=== PATIENT | female | born 1970 | race Caucasian/White ===

== ENCOUNTER → 2018-03-10 15:34 | Day surgery (SDC) | payer OTHER ==
[~2018-03-10 15:34] MED LIST: Buffered Lidocaine 0.9% SYRIN* 5 ML/SYR SYRINGE INTRADERM ONE; Dexamethasone IV* 4 MG/ML 1 ML (4 MG) IV SLOW PU ONE; Dexamethasone IV* 4 MG/ML 1 ML (4 MG) ONE; Famotidine IV* 10 MG/ML 2 ML (20 mg) IV ONE; Famotidine IV* 10 MG/ML 2 ML (20 mg) ONE; HYDROcodone/ACETAMIN 5-325 MG* 1 TAB ONE; Ketorolac INJ* 30 MG/ML 1 ML VIAL IV PRN; Ketorolac INJ* 30 MG/ML 1 ML VIAL ONE; Naloxone* 0.4 MG/ML 1 ML VIAL IV PRN; ROPIVACAINE 5 MG/ML 30 ML BTL (0.5%) ONE; ceFAZolin 2 GM in NS PREMIX(*) 2 GM/100 ML BAG IVPB ONE; fentaNYL* 50 MCG/ML 2 ML VIAL (100 MCG VIAL) ONE
[2018-03-10 17:31] VITALS: BP 121/77
--- NOTE | 2018-03-11 15:11 | OP ---
DATE OF OPERATION: 03/10/18 - [facility] DATE OF : 72 SURGEON: Mina Doss MD BRAND INSPECTOR: SHAR Ramirez. An diploma medical assistant was needed for the procedure to aid in holding the reduction and needed for instrumentation portion. ANESTHESIOLOGIST: Dr. Castle. ANESTHESIA: General. PRE-OP DIAGNOSIS: Right displaced fifth metacarpal neck fracture. POST-OP DIAGNOSIS: Right displaced fifth metacarpal neck fracture. OPERATIVE PROCEDURE: Closed reduction and percutaneous fixation of the right fifth metacarpal neck fracture. INDICATIONS: Natalie has the aforementioned fracture. It is quite displaced and angulated. I talked to her about her options including closed reduction and casting versus pinning. She wanted to proceed with pinning. She understands the risk of a pin tract infection, nonunion, and persistent pain despite surgery. ESTIMATED BLOOD LOSS: 2 mL. COMPLICATIONS: None. FINDINGS: See above and below. DESCRIPTION OF PROCEDURE: Natalie was seen in the preoperative holding area. The correct site, side, and procedure were identified. We came back to the operating room where the arm was prepped and draped in the usual fashion. A time-out was performed. The arm was exsanguinated with the Esmarch and the tourniquet was inflated to 250 mmHg. I made a 2-mm incision over the proximal ulnar mid axial line of the palm proximal to the fifth metacarpal base. Mosquito was used to bluntly dissect down to the metacarpal base. A larger K-wire was used to open up a cortical window. I then placed a 2.0 mm K-wire with the tip bent up into the cortical window. I used a T-handle alyson to advance the K-wire to the fracture site having closed reduced the fracture and held the reduction while my diploma medical assistant advanced the wire across the fracture. This held the reduction very nicely. We tapped it up a few more times at the mallet to make sure it was nice and well seated in the subchondral bone of the metacarpal head. We checked the alignment on the mini C-arm fluoroscopy. Everything was looking good, so the T-handle alyson was removed. The wire was bent and clipped. A pin cap was placed. The pin was dressed with Xeroform, 4 x 4s, sterile Webril, and an ulnar gutter splint was applied grabbing the middle through small fingers. Tourniquet was deflated. She was taken to the recovery room in stable condition. [id number]/[facility] #: [id number] SINGH
--- NOTE | 2018-03-12 10:57 | RAD ---
CPT II Codes: G9500 INDICATION: Fracture left fifth metacarpal TECHNIQUE: Intraoperative fluoroscopy was provided during percutaneous pinning of the fractured left fifth metacarpal. FINDINGS: 3 spot film depicts percutaneous pinning of the left fifth metacarpal. Fluoroscopy time: 38 seconds IMPRESSION: As above.
== END | disposition home or self-care (01) ==
LOC: OREAST 15:34
PROVIDERS: ATTEND Orthopaedic Surgery Hand Surgery
DX: S62.336A Displaced fracture of neck of fifth metacarpal bone, right hand, initial encounter for closed fracture (principal); W22.8XXA Striking against or struck by other objects, initial encounter; Y92.149 Unspecified place in prison as the place of occurrence of the external cause; Z72.0 Tobacco use; I10 Essential (primary) hypertension; E78.5 Hyperlipidemia, unspecified; J45.909 Unspecified asthma, uncomplicated; K21.9 Gastro-esophageal reflux disease without esophagitis; F41.9 Anxiety disorder, unspecified
CPT/HCPCS: 76000; 81025; C1776; J0690; J1100; J1885; J2795; J3010

== ENCOUNTER 2018-04-22 11:28 | Emergency (ER) | payer OTHER ==
--- OUTSIDE RECORDS SUMMARY | 2018-04-22 11:44 | XMS REPORT ---
:1970 External Reference #:[id number] Author Organization [facility] Address [address] [place] [address] Phone [phone] Care Team Providers Name Role Phone Luis Alberto Hernandez MD Primary Care Physician Unavailable Payers Type Date Identification Numbers Payment Provider Subscriber Commercial Policy Number: [id number] [place] Natalie Stanford PayID: [id number] [address] [place] [address] Workers Onset: Policy Number: Jason Natalie Daniel Compensation 2011 [id number] Master Stanford PayID: GALLA [address] [place] [address] Medigap Part B [place] [facility] Natalie Stanford PayID: [id number] [place] [address] Problems Date Description Provider Status Onset: 03/02/2018 Closed fracture of neck of metacarpal Mina Doss MD Active bone Onset: 12/04/2013 Carpal tunnel syndrome RHONDA Mata Active Family History Date Family Member(s) Problem(s) Comments General heart disease General diabetes Social History Type Date Description Comments Lives With mother Occupation Not Currently Working ETOH Use Rarely consumes alcohol Smoking Heavy tobacco smoker (more than 10 cigarettes/day) Recreational Drug Use Former Drug User Daily Caffeine Consumes on average 4 cups of regular coffee per day Exercise Type/Frequency Does not exercise Allergies, Adverse Reactions, Alerts Date Description Reaction Status Severity Comments 09/18/2013 Sulfa Antibiotics active 09/18/2013 Tape Adhesive active 01/18/2018 Augmentin active Medications Medication Date Status Form Strength Qnty SIG Indications Ordering Provider Lisinopril-Hy Active Tablets 10-12.5mg 90tabs 1 by mouth Unknown drochlorothia 000 every day zide Omeprazole Active Capsules 20mg 90caps 1 by mouth Unknown 000 DR twice a day Flexeril Active as needed Unknown 000 Allergy Active 1 po q day Unknown Medication 000 Nasacort Active as Unknown Allergy 24HR 000 directed Advair Diskus Active as Unknown 000 directed Fluoxetine Active Capsules 20mg 1 by mouth Unknown HCL 000 every day Etodolac Active Tablets 400mg as needed Unknown 000 Ibuprofen Active Tablets 800mg by mouth Unknown 000 three times a day as needed Tramadol HCL Hx Tablets 50mg 30tabs 1-2 Mina 018 - tablets by MD Selam mouth 018 every 6 hours as needed pain Lisinopril Hx Unknown 000 - 018 Ibuprofen Hx Unknown 000 - 018 Oxycodone-Matt Hx Unknown taminophen 000 - 018 Neurontin Hx Unknown 000 - 018 Lipitor 0 Hx Unknown 000 - 018 Cymbalta Hx Unknown 000 - 018 Biaxin Hx Unknown 000 - 018 Vital Signs Date Vital Result Comment 04/22/2018 Height 64 inches 5'4" Weight 170.00 lb BP Systolic Sitting 116 mmHg BP Diastolic Sitting 68 mmHg Respiratory Rate 16 /min Pain Level 0 BMI (Body Mass Index) 29.2 kg/m2 03/23/2018 Heart Rate 68 /min BP Systolic 104 mmHg BP Diastolic 56 mmHg Respiratory Rate 16 /min Body Temperature 97.7 F Pain Level 3 03/02/2018 Height 64 inches 5'4" Pain Level 8 01/28/2018 Height 64 inches 5'4" Weight 170.00 lb BP Systolic Sitting 124 mmHg BP Diastolic Sitting 70 mmHg Respiratory Rate 17 /min Pain Level 5 BMI (Body Mass Index) 29.2 kg/m2 01/18/2018 Height 64 inches 5'4" Weight 170.00 lb BP Systolic Sitting 116 mmHg BP Diastolic Sitting 68 mmHg Respiratory Rate 16 /min Pain Level 7 BMI (Body Mass Index) 29.2 kg/m2 03/05/2014 Height 65 inches 5'5" Weight 205.00 lb Pain Level 0 BMI (Body Mass Index) 34.1 kg/m2 02/20/2014 Height 65 inches 5'5" Weight 205.00 lb Pain Level 0 BMI (Body Mass Index) 34.1 kg/m2 02/06/2014 Height 65 inches 5'5" Weight 205.00 lb Body Temperature 98.2 F BMI (Body Mass Index) 34.1 kg/m2 01/26/2014 Height 65 inches 5'5" Weight 205.00 lb Body Temperature 98.7 F BMI (Body Mass Index) 34.1 kg/m2 01/15/2014 Height 65 inches 5'5" Weight 205.00 lb Heart Rate 70 /min BP Systolic 135 mmHg BP Diastolic 70 mmHg BMI (Body Mass Index) 34.1 kg/m2 12/04/2013 Height 65 inches 5'5" Weight 205.00 lb Heart Rate 100 /min BP Systolic 126 mmHg BP Diastolic 86 mmHg BMI (Body Mass Index) 34.1 kg/m2 11/08/2013 Height 65 inches 5'5" Weight 205.00 lb Heart Rate 97 /min BP Systolic 144 mmHg BP Diastolic 80 mmHg BMI (Body Mass Index) 34.1 kg/m2 10/16/2013 Height 65 inches 5'5" Weight 205.00 lb Heart Rate 99 /min BP Systolic 119 mmHg BP Diastolic 81 mmHg BMI (Body Mass Index) 34.1 kg/m2 09/18/2013 Height 64 inches 5'4" Weight 200.00 lb Heart Rate 58 /min BP Systolic 131 mmHg BP Diastolic 75 mmHg BMI (Body Mass Index) 34.3 kg/m2 Results Description No Information Procedures Date CPT Code Description Status 03/23/2018 25916 Short Arm Cast Application Completed 03/10/2018 95232 FX Metacarpal Percutaneous Skeletal Fixation Completed 03/10/2018 93559 FX Metacarpal Percutaneous Skeletal Fixation Completed 01/25/2014 10851 Carpal Tunnel Release Completed 01/25/2014 99495 Carpal Tunnel Release Completed 01/25/2014 66813 Carpal Tunnel Release Completed 10/27/2013 21070 Carpal Tunnel Release Completed 10/27/2013 36389 Carpal Tunnel Release Completed 10/27/2013 89115 Carpal Tunnel Release Completed 10/27/2013 78053 Carpal Tunnel Release Completed Encounters Type Date Location Provider CPT E/M Dx Office Visit 03/02/2018 [place] [address] [id number] 11:00a Of [place] Office Visit 01/28/2018 [place] [address] [id number] 1:45p [facility] [place] Office Visit 01/18/2018 [place] [address] [id number] 10:00a Of [facility] [place] Office Visit 09/18/2013 [facility] [place] 38730 354.0 11:15a Of [place] Pabon M.D. Office Visit 07/15/2012 [facility] [place] 31192 354.0 11:00a Of [place] Pabon M.D. Plan of Care Future Appointment(s):05/27/2018 1:00 pm - Mina Doss MD [facility]/02/2018 - FREIDA [id number] Disp fx of nk of 5th bone, r hand, 7thDFollow up:Follow up: 4 weeks
--- OUTSIDE RECORDS SUMMARY | 2018-04-22 11:44 | XMS REPORT ---
:1970 External Reference #:[id number] Author Organization [facility] Address [address] [place] [address] Phone [phone] Care Team Providers Name Role Phone Luis Alberto Hernandez MD Primary Care Physician Unavailable Payers Type Date Identification Numbers Payment Provider Subscriber Commercial Policy Number: [id number] [place] Natalie Stanford PayID: [id number] [address] [place] [address] Workers Onset: Policy Number: Jason Natalie Daniel Compensation 2011 [id number] Master Stanford PayID: GALLA [address] [place] [address] Medigap Part B [place] [facility] Natalie Stanford PayID: [id number] [place] [address] Problems Date Description Provider Status Onset: 03/02/2018 [...] Form Strength Qnty SIG Indications Ordering Provider Tramadol HCL Active Tablets 50mg 30tabs 1-2 Mina 018 tablets by MD Selam mouth every 6 hours as needed pain Lisinopril-Hy Active Tablets 10-12.5mg 90tabs 1 by [...] 000 three times a day as needed Lisinopril Hx Unknown 000 - 018 Ibuprofen Hx Unknown 000 - 018 Oxycodone-Matt Hx Unknown taminophen 000 - 018 Neurontin Hx Unknown 000 - 018 Lipitor Hx Unknown 000 - 018 Cymbalta Hx Unknown 000 - 018 Biaxin Hx Unknown 000 - 018 Vital Signs Date Vital Result Comment 03/23/2018 Heart Rate 68 /min BP Systolic [...] Procedures Date CPT Code Description Status 03/23/2018 86029 Short Arm Cast Application Completed 03/10/2018 24410 FX Metacarpal Percutaneous Skeletal Fixation Completed 03/10/2018 78781 FX Metacarpal Percutaneous Skeletal Fixation Completed 01/25/2014 78074 Carpal Tunnel Release Completed 01/25/2014 33785 Carpal Tunnel Release Completed 01/25/2014 77420 Carpal Tunnel Release Completed 10/27/2013 55515 Carpal Tunnel Release Completed 10/27/2013 81929 Carpal Tunnel Release Completed 10/27/2013 19811 Carpal Tunnel Release Completed 10/27/2013 36082 Carpal Tunnel Release Completed Encounters Type Date Location Provider CPT E/M Dx Office Visit 03/02/2018 [place] [address] S62.336A 11:00a [facility] [place] Office Visit 01/28/2018 [place] [address] [id number] 1:45p Of [employer] [facility] [place] Office Visit 01/18/2018 [place] [address] S62.636A 10:00a Of [employer] [facility] [place] Office Visit 09/18/2013 [facility] [place] 68613 354.0 11:15a Of [place] Pabon M.D. Office Visit 07/15/2012 [facility] [place] 92028 354.0 11:00a Of [place] Pabon M.D. Plan of Care 03/23/2018 - FREIDA [id number] Disp fx of nk of 5th bone, r hand, 7thDFollow up:Follow up: 2 weeks
[2018-04-22 12:54] VITALS: BP 136/97
--- NOTE | 2018-04-22 13:38 | UC ---
Throat Pain/Nasal Venkat HPI - HPI Summary HPI Summary: 48 yo WF h/o chronic LBP, dorsal spine stimulator, 3 discectomies p/w frontal sinus pains and LBP. Has had a URI about 10 dyas ago but now sinus pain is worsening with funny metallic taste, cannot smell or taste food, denies f/c/n/v/ d. - History of Current Complaint Chief Complaint: UCGeneralIllness Stated Complaint: EAR AND BACK COMPLAINT Time Seen by Provider: 04/22/18 12:49 Hx Obtained From: Patient Hx Last Menstrual Period: 04/09/18 Onset/Duration: Gradual Onset, Lasting Weeks Severity: Severe Pain Intensity: 10 Cough: None Associated Signs & Symptoms: Positive: Negative - Allergies/Home Medications Allergies/Adverse Reactions: Allergies Allergy/AdvReac Type Severity Reaction Status Date / Time Adhesive Tape Allergy Intermediate Hives Verified 03/10/18 15:55 latex Allergy Intermediate HAND RASH Verified 03/10/18 15:55 Sulfa (Sulfonamide Allergy Intermediate Hives Verified 03/10/18 15:55 Antibiotics) amoxicillin [From Augmentin] Allergy Diarrhea Verified 03/10/18 15:55 clavulanic acid Allergy Diarrhea Verified 03/10/18 15:55 [From Augmentin] Home Medications: Home Medications Cyclobenzaprine TAB* [Flexeril 10 MG TAB*] 10 mg PO TID 04/22/18 [History Confirmed 04/22/18] PMH/Surg Hx/FS Hx/Imm Hx Previously Healthy: No - chronic LBP - Surgical History Surgical History: Yes Surgery Procedure, Year, and Place: 12/2000, DISCECTOMY L4, L5, S1, [facility]. 01/2010 , DISCECTOMY L4, L5, [facility]. 11/2010 DISCECTOMY L4,L5, WITH EXCISION OF SCAR TISSUE , [facility]. 02/2013 TRIAL PLACEMENT OF LUMBAR DORSAL COLUMN STIMULATOR, [facility]. 1994 TONSILLECTOMY, [facility]. BILATERAL EYE SURGERY A CHILD, [facility]. 08/2009 SINUS SURGERY, [facility]. 04/26/2013 TOOTH EXTRACTION, [facility]. 10/27/2013 left carpal tunnel surgery. right carpal tunnel 2013 - Social History Alcohol Use: None Substance Use Type: None Substance Use Comment - Amount & Last Used: over the weekend Smoking Status (MU): Current Every Day Smoker Type: Cigarettes Amount Used/How Often: 1- 1.5 PPD Length of Time of Smoking/Using Tobacco: 26 yrs Have You Smoked in the Last Year: Yes When Did the Patient Quit Smoking/Using Tobacco: none since 02/23/18 Household Exposure Type: Cigarettes Review of Systems Constitutional: Negative Skin: Negative Eyes: Negative ENT: Negative Respiratory: Negative Cardiovascular: Negative Gastrointestinal: Negative Genitourinary: Negative Motor: Negative Neurovascular: Negative Musculoskeletal: Other: - see HPI Neurological: Negative Psychological: Negative All Other Systems Reviewed And Are Negative: Yes Physical Exam - Summary Physical Exam Summary: Vital Signs Reviewed: Yes Appearance: Positive: Well-Appearing Skin: Positive: Warm Head/Face: Positive: Normal Head/Face Inspection Eyes: Positive: Normal, EOMI, STEFAN ENT: Positive: Normal ENT inspection, EXTREMLY DRY MM, FRONTAL SINUS TENDERNESS , severe Neck: Positive: Supple Respiratory/Lung Sounds: Positive: Clear to Auscultation Cardiovascular: Positive: Normal, RRR, S1, S2 Abdomen Description: Positive: Nontender, Soft Musculoskeletal: Positive: LBP-CHRONIC paraspinal tenderness in lumbar spine Neurological: Positive: CN Intact II-XII Psychiatric: Positive: Normal Triage Information Reviewed: Yes Vital Signs: Initial Vital Signs Temp 36.7 C 04/22/18 12:43 Pulse 85 04/22/18 12:43 Resp 19 04/22/18 12:43 BP 136/97 04/22/18 12:43 Pulse Ox 100 04/22/18 12:43 Throat Pain/Nasal Course/Dx - Course Course Of Treatment: Toradol 60mg IM x1 for LBP flare, UA neg. Clarithromycin 500 BID x 7 days for sinus infection - Differential Dx/Diagnosis Provider Diagnoses: Sinus infection. Chronic LBP- pt wanted script for oxycodone but advised to follow up with pain clinic, one dose of percocet in UC given Discharge - Sign-Out/Discharge Documenting (check all that apply): Patient Departure All imaging exams completed and their final reports reviewed: No - Discharge Plan Condition: Stable Disposition: HOME Prescriptions: Clarithromycin TAB* [Biaxin 500 MG TAB*] 500 mg PO BID 7 Days #14 tab Referrals: No Primary Care Phys,NOPCP [Primary Care Provider] - - Billing Disposition and Condition Condition: STABLE Disposition: Home
[2018-04-22] MEDS ORDERED: Ketorolac INJ* 60 MG/2 ML VIAL IM ONE (13:41)
[2018-04-22] MEDS ORDERED: oxyCODONE/Acetamin 5/325 MG* TAB PO ONE (13:46)
[2018-04-22] MEDS ORDERED: HYDROcodone/ACETAMIN 5-325 MG* 1 TAB PO ONE (13:50)
--- NOTE | 2018-04-26 08:07 | UC ---
- Progress Note Progress Note: Discharge - Sign-Out/Discharge Documenting (check all that apply): Post-Discharge Follow Up All imaging exams completed and their final reports reviewed: No Studies - Discharge Plan Condition: Stable Disposition: HOME Prescriptions: Clarithromycin TAB* [Biaxin 500 MG TAB*] 500 mg PO BID 7 Days #14 tab Fluconazole 150 MG (NF) [Diflucan 150 mg (NF)] 150 mg PO ONCE #1 tab Patient Education Materials: Sinusitis (ED), Back Pain (ED) Referrals: No Primary Care Phys,NOPCP [Primary Care Provider] - - Billing Disposition and Condition Condition: STABLE Disposition: Home
== END 2018-04-22 14:06 | disposition home or self-care (01) ==
LOC: UCCORT 11:28
DX: J01.90 Acute sinusitis, unspecified (principal); G89.29 Other chronic pain; M54.5 Low back pain; F17.210 Nicotine dependence, cigarettes, uncomplicated
CPT/HCPCS: 81003; 99212; A9270-GY; G0463

== ENCOUNTER 2018-09-10 10:23 | Emergency (ER) | payer OTHER ==
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
[2018-09-10 12:07] VITALS: BP 118/76
== END 2018-09-10 11:35 | disposition short-term general hospital (02) ==
LOC: UCCORT 10:23
DX: T74.21XA Adult sexual abuse, confirmed, initial encounter (principal); R23.4 Changes in skin texture; N89.8 Other specified noninflammatory disorders of vagina; F17.210 Nicotine dependence, cigarettes, uncomplicated; Z91.09 Other allergy status, other than to drugs and biological substances; Z88.2 Allergy status to sulfonamides; Z88.0 Allergy status to penicillin; Z91.040 Latex allergy status; Y92.9 Unspecified place or not applicable; Y07.9 Unspecified perpetrator of maltreatment and neglect
CPT/HCPCS: 99213; G0463